=== PATIENT | male | born 1985 | race Caucasian/White ===

== ENCOUNTER 2017-01-27 11:29 | Emergency (ER) | payer BC, MEDICAID ==
[2017-01-27] MEDS ORDERED: KETOROLAC TROMETHAMINE 30 MG/ML VIAL ONE (12:46)
--- NOTE | 2017-01-27 13:20 | ER NURSING DOCUMENTATION ---
Nurse's Notes [facility] Name:Ryan Brooke Age:31 yrs Sex:Male :1985 Arrival Date:01/27/2017 Time:11:29 Bed6 Private MD:Adalgisa Clark Diagnosis:Coccyx Sprain Presentation: 01/27 11:37 Presenting complaint: Patient states: Pt with pain around tail bone No no known trauma. ma Transition of care: Home. 11:37 Acuity: MICK 3 ma 11:37 Method Of Arrival: Private Vehicle ma Triage Assessment: 11:40 General: Appears in no apparent distress, Behavior is cooperative. Pain: Complains of ma pain in coccyx Pain currently is 4 out of 10 on a pain scale. At worst was 9 out of 10 on a pain scale. Historical: - Allergies: PCN; Pediazole; SULFA (SULFONAMIDES); Amoxicillin; Zithromax; Prednisone; Vicodin; - Home Meds: 1. Keppra Oral - PMHx: SEIZURES; HYPERTENSION; HIGH CHOLESTEROL; - PSHx: Nasal surgery; Facial bone repair; - Tetanus: unknown. - Ebola Screening: : No symptoms or risks identified at this time. . - Immunization history: Flu Vaccine unknown. - Social history: Smoking status: Patient states former smoker of tobacco. Patient uses marijuana. Screenin:42 Infectious Disease Risk None. Abuse screen: Denies threats or abuse. Nutritional ma screening: No deficits noted. Vital Signs: 11:41 BP 114 / 71; Pulse 67; Resp 18; Temp 98.1; Pulse Ox 92% on R/A; Weight 77.11 kg (R); ma Height 5 ft. 10 in. (177.80 cm) (R); Pain 6/10; 11:41 Body Mass Index 24.39 (77.11 kg, 177.80 cm) ny ED Course: 11:30 Patient arrived in ED. arc 11:30 Adalgisa Clark DO is Private Physician. arc 11:33 Dayday Hancock MD is Attending Physician. tl1 11:37 Merry Fofana, SHERICE is Primary Nurse. ma 11:37 Triage completed. ma 11:42 Valuables Given to family. Patient has correct armband on for positive identification. ma Bed in low position. Call light in reach. 12:28 Adalgisa Clark DO is Referral Physician. tl1 Administered Medications: 12:41 Drug: Toradol 30 mg; Route: IM; Site: right deltoid; ma 13:19 Follow up: Response: Pain is decreased ma Outcome: 12:28 Discharge ordered by . bhavya 13:18 Discharged to home ma 13:18 Condition: stable 13:18 Discharge instructions given to patient, family, Instructed on discharge instructions, follow up and referral plans. medication usage, Demonstrated understanding of instructions, medications, Prescriptions given X 2. 13:19 Patient left the ED. ny 01/28 09:09 Discharge F/U Call: Unable to reach: no answer st Signatures: Hui Steele, RN RN Merry De La O RN RN Dayday Cerna MD MD tl1 Rosa Mcclellan, Austin Reg arc
--- NOTE | 2017-01-29 13:19 | ER PHYSICIAN DOCUMENTATION ---
Physician Documentation [facility] Name:Ryan Brooke Age:31 yrs Sex:Male :1985 Arrival Date:01/27/2017 Time:11:29 Bed6 Private MD:Adalgisa Clark ED, Tom Disposition: 01/28 23:19 Chart complete. tl1 Disposition: 01/27/17 12:28 Discharged to Home/Self Care. Impression: Coccyx Sprain. - Condition is Good. - Prescriptions for [place] 7.5- 325 mg Oral - take 1 tablet by ORAL route every 6 hours As needed; 12 tablet. Zofran 4 mg Oral Tablet - take 1-2 tablet by ORAL route every 4-6 hours As needed; 10 tablet. - Medical Reconciliation form form. - Follow up: Adalgisa Clark DO; When: 2 - 3 days; Reason: Recheck today's complaints, Continuance of care. - Problem is new. - Symptoms have improved. - Notes: NO OBVIOUS CAUSE FOR YOUR COCCYX PAIN NOW. RETURN HERE FOR ANY WORSENING. TRY A FOAM DONUT PILLOW. HPI: 11:40 This 31 yrs old Male presents to ER via Private Vehicle with complaints of tl1 Low Back Pain. 11:40 He was fine until yesterday, after driving home from work when he noted the abrupt tl1 onset of pain in his coccyx as he was getting out of his car. This pain has persisted and worsened over the last 16 hours or so. There has been no trauma. No f/c/s or change in his bowel habits. No redness or swelling.. Historical: - Allergies: PCN; Pediazole; SULFA (SULFONAMIDES); Amoxicillin; Zithromax; Prednisone; Vicodin; - Home Meds: 1. Keppra Oral - PMHx: SEIZURES; HYPERTENSION; HIGH CHOLESTEROL; - PSHx: Nasal surgery; Facial bone repair; - Tetanus: unknown. - Ebola Screening: : No symptoms or risks identified at this time. . - Immunization history: Flu Vaccine unknown. - Social history: Smoking status: Patient states former smoker of tobacco. Patient uses marijuana. ROS: 01/27 14:00 Back: Positive for coccyx pain. tl1 All other systems are negative. Exam: 14:00 Constitutional: The patient appears alert, in obvious distress, restless, uncomfortable.tl1 14:00 Abdomen/GI: Rectal exam: is unremarkable, Prostate: normal, rectal tone normal, Stool: guaiac negative, hemorrhoid(s), are not appreciated, mass, is not appreciated, swelling, is not appreciated, tenderness, is not appreciated. 14:00 Back: pain, that is severe, of the coccyx. Vital Signs: 11:41 BP 114 / 71; Pulse 67; Resp 18; Temp 98.1; Pulse Ox 92% on R/A; Weight 77.11 kg (R); ma Height 5 ft. 10 in. (177.80 cm) (R); Pain 6/10; 11:41 Body Mass Index 24.39 (77.11 kg, 177.80 cm) ma MDM: 11:33 Patient medically screened. tl1 12:30 Data reviewed: vital signs, nurses notes, and as a result, I will discharge patient. tl1 Counseling: I had a detailed discussion with the patient and/or guardian regarding: the historical points, exam findings, and any diagnostic results supporting the discharge/admit diagnosis, the need for outpatient follow up. Response to treatment: the patient's symptoms have mildly improved after treatment, and as a result, I will discharge patient. ED course: I advised him that initial management of this problem is usually conservative and that this does sometimes resolve spontaneously. Advanced imaging may be helpful if symptoms persist.. 13:00 Differential diagnosis: Coccydynia. No apparent trauma and no apparent infection. tl1 differential includes hypermobility, bone spurs, arthritis. Dispensed Medications: 12:41 Drug: Toradol 30 mg; Route: IM; Site: right deltoid; ma 13:19 Follow up: Response: Pain is decreased ma Signatures: Merry Fofana, SHERICE RN Dayday Cerna MD MD tl1
== END 2017-01-27 13:20 | disposition home or self-care (01) ==
LOC: ER 11:29
DX: M53.3 Sacrococcygeal disorders, not elsewhere classified (principal)
CPT/HCPCS: 96372; 99283; J1885

== ENCOUNTER 2017-05-05 14:55 | Emergency (ER) | payer MEDICAID ==
--- NOTE | 2017-05-05 15:28 | ER PHYSICIAN DOCUMENTATION ---
Physician Documentation [facility] Name:Ryan Brooke Age:32 yrs Sex:Male :1985 Arrival Date:05/05/2017 Time:14:55 Bed1 Private MD:Adalgisa Clark ED, Tom Disposition: 05/05 16:20 Chart complete. tl1 Disposition: 05/05/17 15:22 Discharged to Home/Self Care. Impression: Tinea Pedis (Athlete's Foot). - Condition is Good. - Discharge Instructions: ATHLETE'S FOOT. - Medical Reconciliation form form. - Follow up: Adalgisa Clark DO; When: 4- 6 days; Reason: Recheck today's complaints, Continuance of care. - Problem is new. - Symptoms are unchanged. - Notes: OK TO USE HYDROCORTISONE 1% FOR 2-3 DAYS, WITH SOME KIND OF TOPICAL ANTIFUNGAL SUCH TINACTIN. HPI: 15:20 This 32 yrs old Male presents to ER via Private Vehicle with complaints of tl1 Rash - ON FEET. 16:00 The patient presents with a rash that is though to be caused by Wearing heavy boots. tl1 The rash is located on the dorsal toes , both feet.. The rash can be described as vesicular. Onset: The symptom(s)/episode began/occurred gradually, 2 week(s) ago. Severity of symptoms: At their worst the symptoms were mild in the emergency department the symptoms are unchanged. Historical: - Allergies: Prednisone; Vicodin; Erythromycin; Codeine; PENICILLINS; SULFA (SULFONAMIDES); - Home Meds: 1. Effexor XR 75 mg oral cp24 1 cap once daily with food 2. ergocalciferol (vitamin D2) 2,000 unit oral tab 3. Keppra 500 mg oral tab 1 tab 2 times per day 4. [place]-3 oral cap 5. ibuprofen 200 mg oral tab 2 tabs every 4-6 hours for Pain - PMHx: vitamin D deficiency; Hyperlipidemia; compression fracture; upper back pain; seizure disorder; Major depressive disorder; atrial fibrillation; - PSHx: fracture of zygomatic arch; - Tetanus: < 10 years. - Ebola Screening: : Patient negative for fever greater than or equal to 101.5 degrees Fahrenheit, and additional compatible Ebola Virus Disease symptoms. Patient denies exposure to infectious person. Patient denies travel to an Ebola-affected area in the 21 days before illness onset. . - Immunization history: Flu Vaccine None. - Social history: Smoking status: Patient states former smoker of tobacco. ROS: 16:00 Skin: Positive for rash. tl1 16:00 All other systems are negative. Exam: 16:00 Constitutional: This is a well developed, well nourished patient who is awake, alert, tl1 and in no acute distress. 16:00 Cardiovascular: Rate: normal, Rhythm: regular. 16:00 Respiratory: Respirations: normal. 16:00 Skin: athlete's foot. Vital Signs: 14:59 BP 120 / 72; Pulse 56; Resp 16; Temp 98.0(O); Pulse Ox 95% on R/A; Weight 72.57 kg (R); arc Height 6 ft. 0 in. (182.88 cm) (R); Pain 1/10; 15:13 BP 120 / 72; Pulse 68; Pulse Ox 96% on R/A; lp 14:59 Body Mass Index 21.70 (72.57 kg, 182.88 cm) arc MDM: 15:20 Patient medically screened. tl1 16:20 Differential diagnosis: athlete's foot. Scabies seems unlikely. Data reviewed: vital tl1 signs, nurses notes, and as a result, I will discharge patient. Counseling: I had a detailed discussion with the patient and/or guardian regarding: the historical points, exam findings, and any diagnostic results supporting the discharge/admit diagnosis, the need for outpatient follow up, to return to the emergency department if symptoms worsen or persist or if there are any questions or concerns that arise at home. Special discussion: I recommended tinactin or some other antifungal spray/powder, with perhaps a day or two of BID 1% HC cream.. Dispensed Medications: No medications were administered Signatures: Kena Maza RN RN lp Leigh, Tom, MD MD tl1
--- NOTE | 2017-05-05 15:28 | ER NURSING DOCUMENTATION ---
Nurse's Notes [facility] Name:Ryan Brooke Age:32 yrs Sex:Male :1985 Arrival Date:05/05/2017 Time:14:55 Bed1 Private MD:Adalgisa Clark Diagnosis:Tinea Pedis (Athlete's Foot) Presentation: 05/05 14:59 Presenting complaint: Patient states: Rash on feet. Transition of care: Home. Onset: lp The symptoms/episode began/occurred 2 week(s) ago. Anaphylaxis evaluation, no signs or symptoms of anaphylaxis were noted. 14:59 Acuity: MICK 3 lp 14:59 Acuity: MICK 4 lp 14:59 Method Of Arrival: Private Vehicle lp Triage Assessment: 15:10 General: Appears in no apparent distress, Behavior is appropriate for age. Pain: lp Complains of pain in right foot and left foot. EENT: No deficits noted. Neuro: No deficits noted. Cardiovascular: No deficits noted. Respiratory: No deficits noted. GI: No deficits noted. : No deficits noted. Derm: Rash noted that is papular, red. Historical: - Allergies: Prednisone; Vicodin; Erythromycin; Codeine; PENICILLINS; SULFA (SULFONAMIDES); - Home Meds: 1. Effexor XR 75 mg oral cp24 1 cap once daily with food 2. ergocalciferol (vitamin D2) 2,000 unit oral tab 3. Keppra 500 mg oral tab 1 tab 2 times per day 4. [place]-3 oral cap 5. ibuprofen 200 mg oral tab 2 tabs every 4-6 hours for Pain - PMHx: vitamin D deficiency; Hyperlipidemia; compression fracture; upper back pain; seizure disorder; Major depressive disorder; atrial fibrillation; - PSHx: fracture of zygomatic arch; - Tetanus: < 10 years. - Ebola Screening: : Patient negative for fever greater than or equal to 101.5 degrees Fahrenheit, and additional compatible Ebola Virus Disease symptoms. Patient denies exposure to infectious person. Patient denies travel to an Ebola-affected area in the 21 days before illness onset. . - Immunization history: Flu Vaccine None. - Social history: Smoking status: Patient states former smoker of tobacco. Screenin:12 Infectious Disease Risk None. Abuse screen: Denies threats or abuse. Denies injuries lp from another. Nutritional screening: No deficits noted. Assessment: 15:11 Respiratory: Airway is patent Respiratory effort is even, unlabored. lp 15:13 Respiratory: Breath sounds are clear bilaterally. lp Vital Signs: 14:59 BP 120 / 72; Pulse 56; Resp 16; Temp 98.0(O); Pulse Ox 95% on R/A; Weight 72.57 kg (R); arc Height 6 ft. 0 in. (182.88 cm) (R); Pain 1/10; 15:13 BP 120 / 72; Pulse 68; Pulse Ox 96% on R/A; lp 14:59 Body Mass Index 21.70 (72.57 kg, 182.88 cm) arc ED Course: 14:56 Patient arrived in ED. jt 14:56 Adalgisa Clark DO is Private Physician. jt 14:59 Kena Maza RN is Primary Nurse. lp 15:00 Triage completed. lp 15:[address] Hancock notified. lp 15:12 Valuables Remains with patient Patient has correct armband on for positive lp identification. Placed in gown. Bed in low position. Call light in reach. 15:20 Dayday Hancock MD is Attending Physician. tl1 15:21 Adalgisa Clark DO is Referral Physician. tl1 Administered Medications: No medications were administered Outcome: 15:22 Discharge ordered by . tl1 15:23 Discharged to home ambulatory. lp 15:23 Condition: good 15:23 Instructed on discharge instructions, follow up and referral plans. medication usage. 15:27 Patient left the ED. lp Signatures: Kena Maza RN RN lp Leigh, Tom, MD MD tl1 Eleuterio, Rosa, Reg Reg [facility] Akila Bruno
== END 2017-05-05 15:27 | disposition home or self-care (01) ==
LOC: ER 14:55
DX: B35.3 Tinea pedis (principal); Z79.899 Other long term (current) drug therapy
CPT/HCPCS: 99281